=== PATIENT | male | born 1990 | race Caucasian/White ===

== ENCOUNTER 2016-06-24 19:17 | Emergency (ER) | payer OTHER ==
[~2016-06-24] VITALS: Ht 170.2 cm; Wt 66.0 kg
[2016-06-24 19:27] VITALS: BP 140/80; PULSE 125; RESP 18; TEMP 98.1; O2SAT 100
[2016-06-24 19:55] LABS: BASOPHIL # 0.1 TH/MM3 (0-0.2); BASOPHIL % 0.9 % (0.0-2.0); EOSINOPHIL # 0.1 TH/MM3 (0-0.4); EOSINOPHIL % 0.8 % (0.0-4.0); HEMATOCRIT 44.3 % (39.0-51.0); HEMO FLAGS DIFF FINAL; LYMPH % 21.4 % (9.0-44.0); LYMPHOCYTE # 1.5 TH/MM3 (1.0-4.8); MEAN CELL VOLUME 93.6 FL (80.0-100.0); MEAN CORPUSCULAR HEMOGLOBIN 33.1 PG (27.0-34.0); MEAN CORPUSCULAR HGB CONC 35.3 % (32.0-36.0); MONO % 3.4 % (0.0-8.0); NEUT % 73.5 % (16.0-70.0); PLATELET COUNT 288 TH/MM3 (150-450); RED BLOOD COUNT 4.73 MIL/MM3 (4.50-5.90); RED CELL DISTRIBUTION WIDTH 13.1 % (11.6-17.2); WHITE BLOOD COUNT 6.8 TH/MM3 (4.0-11.0)
[2016-06-24 20:10] LABS: BICARBONATE 23.8 MEQ/L (21.0-32.0); POTASSIUM 3.6 MEQ/L (3.5-5.1)
--- NOTE | 2016-06-24 20:35 | PD ---
HPI Chief Complaint: Psychiatric Symptoms Time Seen by Provider: 20:35 Travel History International Travel<30 days: No Contact w/Intl Traveler<30days: No Traveled to known affect area: No History of Present Illness HPI 26-year-old male presents to the emergency department under Torres act for psychiatric evaluation. Patient states that he's been depressed and is talking with his stepdad about this. He states the next thing he knew the police were bringing him into the emergency department under a Torres act. Patient states that he drinks a lot of alcohol, as much as he can do he does need help with this. He states he works a lot of hours and when he is not working he drinks alcohol. Denies suicidal or homicidal ideations. Does report feeling depressed and "probably needing the medication." Denies any acute medical needs at this time. PFSH Past Medical History Medical History: Denies Significant Hx Diminished Hearing: No Tetanus Vaccination: Unknown Influenza Vaccination: No Past Surgical History Surgical History: No Previous Surgery Social History Alcohol Use: Yes Tobacco Use: Yes Substance Use: No Allergies-Medications (Allergen,Severity, Reaction): Coded Allergies: No Known Allergies (Unverified , 06/24/16) Reported Meds & Prescriptions Reported Meds & Active Scripts Active No Active Prescriptions or Reported Medications Review of Systems ROS Limitations: Intoxication Except as stated in HPI: all other systems reviewed are Neg Physical Exam Exam Limitations: Intoxication Narrative GENERAL: Well-nourished male patient, in no acute distress SKIN: Focused skin assessment warm/dry. HEAD: Atraumatic. Normocephalic. EYES: Pupils equal and round. No scleral icterus. No injection or drainage. ENT: No nasal bleeding or discharge. Mucous membranes pink and moist. NECK: Trachea midline. No JVD. CARDIOVASCULAR: Regular rate and rhythm. No murmur appreciated. RESPIRATORY: No accessory muscle use. Clear to auscultation. Breath sounds equal bilaterally. GASTROINTESTINAL: Abdomen soft, non-tender, nondistended. Hepatic and splenic margins not palpable. MUSCULOSKELETAL: No obvious deformities. No clubbing. No cyanosis. No edema. NEUROLOGICAL: Awake and alert. No obvious cranial nerve deficits. Motor grossly within normal limits. Normal speech. Data Data Last Documented VS Vital Signs Date Time Temp Pulse Resp B/P Pulse Ox O2 Delivery O2 Flow Rate FiO2 06/24/16 19:29 125 06/24/16 19:27 98.1 18 140/80 100 Orders Complete Blood Count With Diff (06/24/16 19:35) Basic Metabolic Panel (Bmp) (06/24/16 19:35) Psych Screen (06/24/16 19:35) Drug Screen, Random Urine (06/24/16 19:35) Alcohol (Ethanol) (06/24/16 19:35) Labs Laboratory Tests Test 06/24/16 06/24/16 19:45 20:41 White Blood Count 6.8 TH/MM3 Red Blood Count 4.73 MIL/MM3 Hemoglobin 15.6 GM/DL Hematocrit 44.3 % Mean Corpuscular Volume 93.6 FL Mean Corpuscular Hemoglobin 33.1 PG Mean Corpuscular Hemoglobin 35.3 % Concent Red Cell Distribution Width 13.1 % Platelet Count 288 TH/MM3 Mean Platelet Volume 7.5 FL Neutrophils (%) (Auto) 73.5 % Lymphocytes (%) (Auto) 21.4 % Monocytes (%) (Auto) 3.4 % Eosinophils (%) (Auto) 0.8 % Basophils (%) (Auto) 0.9 % Neutrophils # (Auto) 5.0 TH/MM3 Lymphocytes # (Auto) 1.5 TH/MM3 Monocytes # (Auto) 0.2 TH/MM3 Eosinophils # (Auto) 0.1 TH/MM3 Basophils # (Auto) 0.1 TH/MM3 CBC Comment DIFF FINAL Differential Comment Sodium Level 144 MEQ/L Potassium Level 3.6 MEQ/L Chloride Level 108 MEQ/L Carbon Dioxide Level 23.8 MEQ/L Anion Gap 12 MEQ/L Blood Urea Nitrogen 6 MG/DL Creatinine 1.07 MG/DL Estimat Glomerular Filtration 84 ML/MIN Rate Random Glucose 118 MG/DL Calcium Level 8.6 MG/DL Ethyl Alcohol Level 296 MG/DL Urine Opiates Screen NEG Urine Barbiturates Screen NEG Urine Amphetamines Screen NEG Urine Benzodiazepines Screen NEG Urine Cocaine Screen NEG Urine Cannabinoids Screen NEG MDM Medical Decision Making Medical Screen Exam Complete: Yes Emergency Medical Condition: Yes Medical Record Reviewed: Yes Differential Diagnosis Intoxication versus mood disorder versus personality disorder versus adjustment reaction disorder Narrative Course 26-year-old male presents to the the emergency department under Torres act for psychiatric evaluation. Patient appears without distress. CBC and BMP are without acute concern. EtOH is 296. Toxicology is negative. Patient is medically cleared and undergo psychiatric screening for further evaluation and disposition. Diagnosis Primary Impression: Alcohol-induced mood disorder Scripts No Active Prescriptions or Reported Meds Condition: Virgen Hinds Jun 24, 2016 20:35
[2016-06-24 21:12] LABS: AMPHETAMINE, URINE NEG (NEG); BARBITURATES, URINE NEG (NEG); COCAINE, URINE NEG (NEG)
[2016-06-24 23:33] VITALS: BP 134/68; PULSE 96; RESP 16; O2SAT 97
[2016-06-25 02:05] VITALS: BP 133/61; PULSE 98; RESP 16; O2SAT 98
[2016-06-25 06:31] VITALS: BP 131/60; PULSE 81; RESP 16; O2SAT 71; O2SAT 97
[2016-06-25] MEDS ORDERED: FOLIC ACID 1 MG TAB PO SCH (09:44)
[2016-06-25] MEDS ORDERED: THIAMINE HCL 100 MG TAB PO SCH (09:44)
[2016-06-25] MEDS ORDERED: FLUMAZENIL 0.5 MG/5 ML VIAL IV PUSH PRN (09:45)
[2016-06-25] MEDS ORDERED: LORazepam 2 MG/ML VIAL IV PUSH PRN ×4 (09:45)
[2016-06-25] MEDS ORDERED: LORazepam 1 MG TAB PO PRN (09:45)
[2016-06-25] MEDS ORDERED: LORazepam 2 MG TAB PO PRN (09:45)
[2016-06-25 10:00] VITALS: BP 134/65; PULSE 88; RESP 17
--- NOTE | 2016-06-25 11:23 | MB ---
cc: GIANLUCA RAO DATE OF CONSULTATION 06/25/2016 PHYSICIAN REQUESTING CONSULTATION Emergency Department REASON FOR CONSULTATION Torres ACT HISTORY OF PRESENT ILLNESS Mr. Cummings is a 26-year-old male with no reported past psychiatric history who presented to the ED under a Torres ACT from [facility] Department alleging that "Mr. Cummings stated he got drunk and quit his job with the intention of going home and committing suicide. Mr. Cummings wrote a note stating he wanted to . He then cut his wrists twice without causing major damage." Reviewing the electronic medical record, I see no prior psychiatric contact within our system. The patient's alcohol level on presentation here was 296. The patient seen and examined. Chart reviewed. Case discussed with nurse in the J-pod. On my evaluation today, the patient is clinically sober. He remains quite dysphoric. He says that his life is "shitty and sad." He endorses hopeless and worthless feelings. He endorses ongoing suicidal ideation with plans to cut his wrists. He says that the superficial cuts that he made already were merely a trial run. No hypomanic or manic symptoms. He denies any audiovisual hallucinations and I can elicit no delusional beliefs. The remainder of the psychiatric ROS is negative. PAST PSYCHIATRIC HISTORY The patient denies any history of diagnosed psychiatric illness. He denies any history of inpatient or outpatient psychiatric treatment. He denies any history of suicide attempts. FAMILY HISTORY The patient is unsure of his family psychiatric history. CHEMICAL DEPENDENCY HISTORY The patient reports that he started drinking at age 13 and "drank my [address] through my parents liquor cabinet." He has continued drinking heavily since then and says that he has been drinking all of his money away on beer every day. He has no significant period of sobriety. He has had relationship and job problems because of his drinking. Nursing staff has obtained collateral from the patient's mother to the effect that she fears that the patient is an alcoholic like his father. Mother notes that the patient is only suicidal when he drinks. The patient denies any other substance use. SOCIAL HISTORY The patient reports that he lives alone. He is single with no children. He had previously worked two jobs, but walked out of one of them. He denies any or legal history. Denies any access to guns or firearms. Denies any alevism or spiritual beliefs. PAST MEDICAL HISTORY No reported physical or history of medical problems. REVIEW OF SYSTEMS No reported headache, vision or hearing changes, chest pain, shortness of breath, bowel or bladder issues. No other reported physical complaints. PHYSICAL EXAMINATION VITAL SIGNS: Temperature is 98.1, pulse of 81, respirations 16, blood pressure 131/60, pulse oximetry 97% on room air. Physical examination completed by the ED provider. On my examination today, the patient appears to be well-nourished and well-developed and in no acute physical distress. No hand tremor, no diaphoresis, no mydriasis, no other signs alcohol withdrawal noted. No other motor abnormalities noted. EXTREMITIES: The patient does have superficial skin patches on the anterior aspect of his left wrist LABORATORY CBC unremarkable. BMP significant for decreased GFR at 84 and mild hyperglycemia at 118. Toxicology negative. Alcohol level 296. MENTAL STATUS EXAM The patient is in hospital gown. He is somewhat disheveled, but appears to be maintaining basic hygiene. He is awake and alert and oriented x3. No evidence of delirium. No abnormal motor movements noted. Speech is somewhat slow with increased speech latency. Language and fund of knowledge seem average. Mood is depressed and affect is restricted and dysphoric. Thought process linear. No loosening of associations. No evident delusions. Denies audiovisual hallucinations. Endorses ongoing suicidal ideation with plan to continue the cut himself. No homicidal ideation. Insight and judgment are presently poor. ASSESSMENT/PLAN 1. Alcohol dependence with alcohol-induced mood disorder, F10.24 This is 26-year-old male with a psychiatric history as detailed above who presents under a Torres ACT. On my examination today, the patient endorses depressive symptomatology and ongoing suicidal ideation with plan to cut himself. Collateral from mother indicates that the patient is chiefly suicidal when he drinks. The patient has severe alcohol use issues. He would likely benefit from a dual diagnosis program. The patient is presently without a payer source and I have instructed the nursing staff to refer the patient to the dual diagnosis unit at the [facility] to see if they will accept him as a jo case. If they will not, the patient will be retained in the J-pod and sent to ACT for further management of his mood and alcohol use issues. In the meantime, while the patient is in the J-pod, I will provide him with a CIWA scale with Ativan for the management of any withdrawal, thiamine and folate. Seizure and fall precautions. The case discussed with RN in the J-pod. Thank you very much for this consultation. Gianluca HERNANDEZ /10:13 AM /11:06 AM GRANT
== END 2016-06-25 14:37 ==
LOC: NEDAMB 19:17 → NEPJ 06-25 14:37
DX: F10.94 Alcohol use, unspecified with alcohol-induced mood disorder (principal); F10.24 Alcohol dependence with alcohol-induced mood disorder; Z72.0 Tobacco use
CPT/HCPCS: 80048; 80307; 85025; 99285